=== PATIENT | male | born 1950 | race Caucasian/White ===

== ENCOUNTER 2018-06-14 13:45 | Outpatient (RCR) | payer MEDICARE | END 2018-07-04 | disposition home or self-care (01) | LOC: PTY 13:45 | DX: M75.112 Incomplete rotator cuff tear or rupture of left shoulder, not specified as traumatic (principal) | CPT/HCPCS: 97110; 97140; 97161; G8984; G8985 ==

== ENCOUNTER 2018-08-01 15:00 | Outpatient (RCR) | payer MEDICARE | END 2018-08-03 | disposition home or self-care (01) | LOC: PTY 15:00 | DX: M75.112 Incomplete rotator cuff tear or rupture of left shoulder, not specified as traumatic (principal); N28.9 Disorder of kidney and ureter, unspecified; I10 Essential (primary) hypertension; M19.90 Unspecified osteoarthritis, unspecified site; B20 Human immunodeficiency virus [HIV] disease ==

== ENCOUNTER 2019-01-03 14:40 | Outpatient (RCR) | payer MEDICARE | END 2019-02-01 | disposition home or self-care (01) | LOC: WCC 14:40 | DX: T86.828 Other complications of skin graft (allograft) (autograft) (principal); L59.8 Other specified disorders of the skin and subcutaneous tissue related to radiation; I10 Essential (primary) hypertension; Z85.9 Personal history of malignant neoplasm, unspecified; B20 Human immunodeficiency virus [HIV] disease; Z79.899 Other long term (current) drug therapy | CPT/HCPCS: G0277; G0463 ==

== ENCOUNTER 2019-02-04 08:19 | Outpatient (RCR) | payer MEDICARE | END 2019-03-03 | disposition home or self-care (01) | LOC: WCC 08:19 | DX: T86.828 Other complications of skin graft (allograft) (autograft) (principal); L59.8 Other specified disorders of the skin and subcutaneous tissue related to radiation; I10 Essential (primary) hypertension; B20 Human immunodeficiency virus [HIV] disease; Z79.899 Other long term (current) drug therapy; Z85.9 Personal history of malignant neoplasm, unspecified ==

== ENCOUNTER 2019-09-09 08:56 | Outpatient (RCR) | payer MEDICARE | END 2019-10-04 | disposition home or self-care (01) | LOC: WCC 08:56 | DX: T86.828 Other complications of skin graft (allograft) (autograft) (principal); L59.8 Other specified disorders of the skin and subcutaneous tissue related to radiation; C44.41 Basal cell carcinoma of skin of scalp and neck; B20 Human immunodeficiency virus [HIV] disease; I10 Essential (primary) hypertension | CPT/HCPCS: G0463 ==